=== PATIENT | female | born 1945 | race Caucasian/White ===

== ENCOUNTER 2021-01-31 11:19 | Outpatient (CLI) | payer MEDICARE, BC | END 2021-01-31 23:59 | disposition home or self-care (01) | LOC: US 11:19 | DX: M79.651 Pain in right thigh (principal) ==

== ENCOUNTER 2021-09-28 10:57 | Outpatient (CLI) | payer MEDICARE, BC | END 2021-09-28 23:59 | disposition home or self-care (01) | LOC: XRAY 10:57 | PROVIDERS: ATTEND Internal Medicine | DX: N28.1 Cyst of kidney, acquired (principal) | CPT/HCPCS: 76700 ==

== ENCOUNTER 2021-11-21 11:48 | Outpatient (CLI) | payer MEDICARE, BC | END 2021-11-21 23:59 | disposition home or self-care (01) | LOC: US 11:48 | PROVIDERS: ATTEND Internal Medicine Endocrinology, Diabetes & Metabolism | DX: E04.1 Nontoxic single thyroid nodule (principal) | CPT/HCPCS: 76536 ==

== ENCOUNTER 2023-01-01 09:19 | Outpatient (CLI) | payer MEDICARE, BC ==
[2023-01-01 10:31] LABS: *BILIRUBIN,URIN NEGATIVE (NEGATIVE); *CLARITY,URINE CLEAR (CLEAR); *COLOR,URINE YELLOW (YELLOW); *KETONES,URINE NEGATIVE (NEGATIVE); *UROBILINOGEN,URINE 0.2 E.U./dl (NORMAL); LEUKOCYTE ESTERASE ,URINE TRACE (NEGATIVE); NITRITE, URINE NEGATIVE (NEGATIVE); UGLUCOSE NEGATIVE (NEGATIVE)
[2023-01-01 10:32] LABS: *BLOOD, URINE TRACE (NEGATIVE)
[2023-01-01 14:53] LABS: BACTERIA,URINE FEW /HPF (NONE SEEN); SQUAMOUS EPITHELIAL CELL,UR FEW /HPF (NONE SEEN); WBC,URINE 0-3 /HPF (0-3)
[2023-01-01 14:54] LABS: MUCUS,URINE FEW /LPF (0-FEW); RBC,URINE 0-3 /HPF (0-3)
== END 2023-01-01 23:59 | disposition home or self-care (01) ==
LOC: RAD 09:19 → LAB 23:59
PROVIDERS: ATTEND Internal Medicine
DX: J98.11 Atelectasis (principal); J18.9 Pneumonia, unspecified organism; N20.0 Calculus of kidney
CPT/HCPCS: 71046

== ENCOUNTER 2023-02-19 12:35 | Outpatient (CLI) | payer MEDICARE, BC ==
[2023-02-19 13:02] LABS: HEMATOCRIT 40.4 % (31.2-41.9); MEAN CORPUSCULAR HEMOGLOBIN 30.7 uug (24.7-32.8); MEAN CORPUSCULAR VOLUME 94.1 fL (75.5-95.3); PLATELET COUNT (AUTO) 236 K/uL (179-408)
[2023-02-19 13:24] LABS: THYROID STIMULATING HORMONE 1.344 mIU/mL (0.358-3.740)
[2023-02-19 13:26] LABS: *BILIRUBIN,URIN NEGATIVE (NEGATIVE); *BLOOD, URINE NEGATIVE (NEGATIVE); *CLARITY,URINE CLEAR (CLEAR); *COLOR,URINE YELLOW (YELLOW); *KETONES,URINE NEGATIVE (NEGATIVE); *UROBILINOGEN,URINE 0.2 E.U./dl (NORMAL); LEUKOCYTE ESTERASE ,URINE NEGATIVE (NEGATIVE); NITRITE, URINE NEGATIVE (NEGATIVE); UGLUCOSE NEGATIVE (NEGATIVE)
[2023-02-19 14:53] LABS: ALANINE AMINOTRANSFERASE 25 U/L (14-59); ALKALINE PHOSPHATASE 79 U/L (50-136); AMYLASE 73 U/L (25-115); ASPARTATE AMINOTRANSFERASE 16 U/L (15-37); BILIRUBIN,TOTAL 0.5 mg/dL (0.2-1.0); CARBON DIOXIDE 24 mmol/L (21-32); CHLORIDE 107 mmol/L (98-107); CHOLESTEROL 272 mg/dL (<200); CREATININE 0.6 mg/dL (0.6-1.3); GLUCOSE 102 mg/dL (74-106); HDL CHOLESTEROL 116 mg/dL (40-60); LACTATE DEHYDROGENASE 152 U/L (81-234); MAGNESIUM 2.2 mg/dL (1.8-2.4); PHOSPHOROUS 4.3 mg/dL (2.5-4.9); POTASSIUM 4.5 mmol/L (3.5-5.1); TOTAL PROTEIN, SERUM 6.9 g/dL (6.4-8.2); TRIGLYCERIDES 65 MG/DL (30-150); UREA NITROGEN, BLOOD 17 mg/dL (7-18)
== END 2023-02-19 23:59 | disposition home or self-care (01) ==
LOC: LAB 12:35
PROVIDERS: ATTEND Specialist
DX: E78.00 Pure hypercholesterolemia, unspecified (principal); R53.83 Other fatigue; R10.9 Unspecified abdominal pain
CPT/HCPCS: 36415; 83615; 83690; 83735; 84100; 84443; 84481; 84550; 85025; 86140

== ENCOUNTER 2024-08-03 21:42 | Emergency (ER) | payer MEDICARE, BC ==
[~2024-08-03] VITALS: Ht 157.5 cm; Wt 72.1 kg
[2024-08-03] MEDS ORDERED: DOXY75TA PO (22:22)
[2024-08-03] MEDS ORDERED: LEVO75TA7 PO (22:22)
[2024-08-03] MEDS ORDERED: APIX5TAB PO (22:22)
[2024-08-03] MEDS ORDERED: LORA5TAB9 PO (22:22)
[2024-08-03 22:55] VITALS: BP 110/72; TEMP 98.3; O2SAT 99
== END 2024-08-03 22:56 | disposition home or self-care (01) ==
LOC: ER 21:44
DX: H43.391 Other vitreous opacities, right eye (principal); I48.91 Unspecified atrial fibrillation; Z79.890 Hormone replacement therapy; E03.9 Hypothyroidism, unspecified; Z79.01 Long term (current) use of anticoagulants; Z88.8 Allergy status to other drugs, medicaments and biological substances
CPT/HCPCS: 70450; A4606; A4663